=== PATIENT | female | born 1955 | race Caucasian/White ===

== ENCOUNTER 2017-07-04 08:30 | Day surgery (SDC) | payer BC ==
--- NOTE | 2017-07-04 06:13 | History and Physical Report ---
DATE: 07/04/2017. CHIEF COMPLAINT AND HISTORY OF CHIEF COMPLAINT: This patient had a spinal cord stimulator implant placed on 09/07/2010 with greater than 75 percent pain control. Over time with failure of the system and the lack of use, the patient presented and indicated that the system was nonfunctional, and she was requesting removal. She was given the options to remove, revise, or replace, and she opted to remove. PAST MEDICAL HISTORY: Asthmatic bronchitis, bladder dysfunction, peptic ulcer disease, gastritis, degenerative arthritis. PAST SURGICAL HISTORY: Lumbar laminectomy, ankle surgery, stimulator implant. MEDICATIONS ON ADMISSION: To be provided. ALLERGIES: None listed. SOCIAL HISTORY: Caffeine. FAMILY HISTORY: Thyroid disease, diabetes, coronary artery disease, cancer. REVIEW OF SYSTEMS: The patient seems appropriate and in no acute distress. PHYSICAL EXAMINATION: General: Height and weight are unavailable. Vital Signs: Unavailable. HEENT: Within normal limits. Lungs: Clear. Heart: Regular rate and rhythm. Abdomen: Nontender. Musculoskeletal: Examination of the musculoskeletal system shows two incision lines, one to the left and one to the right of the midline, for the placement of peripheral nerve stimulators. The generator pouch at the right posterior gluteal margin is identified. All of the incisions are intact. Primary pain pattern is in the low back. There is a mild lower extremity component. There is no current sensory or motor deficit to the lower extremities. Neurologic: Cranial nerves are intact. IMPRESSION: 1. INTRACTABLE LUMBAR RADICULOPATHY, ICD-10 CODE M54.16 AND M54.17. 2. PERIPHERAL NERVE STIMULATOR INTERNAL GENERATOR, TWO LEADS IN PLACE NONFUNCTIONAL. PLAN: The patient is here for removal of the two peripheral nerve stimulators and internal generator. The procedure will be considered outpatient. All of the potential risks, side effects, and complications have been reviewed and discussed. JOB NUMBER: [id number] cc: Leonardo Euceda M.D. MTDLonnie
[~2017-07-04 08:30] MED LIST: ACETAMINOPHEN 1,000 MG/100 ML BTL IV ONE; CLINDAMYCIN 600MG/50ML PREMIX 600 MG/50 ML BAG IVPB ONE; FAMOTIDINE 20MG TABLET PO ONE; MECLIZINE 25 MG TABLET PO ONE; METOCLOPRAMIDE 10 MG TABLET PO ONE
[2017-07-04] MEDS ORDERED: LIDOCAINE 1% W/EPI 1:200,000 MPF 30ML SQ ONE (08:31)
[2017-07-04] MEDS ORDERED: BUPIVACAINE 0.5% W/EPI MPF 30 ML VIAL IVP ONE (08:31)
[2017-07-04] MEDS ORDERED: CLINDAMYCIN (PEDIATRIC DOSING) 150 MG/ML VIAL IVPB ONE (08:31)
[2017-07-04] MEDS ORDERED: HYDROCODONE/APAP 7.5/325MG TABLET PO ONE (08:31)
--- NOTE | 2017-07-05 21:48 | Operative Note - [place] ---
DATE OF SURGERY: 07/04/17 PREOPERATIVE DIAGNOSES: 1. LUMBAR RADICULOPATHY, ICD-10 CODE = M54.16 AND M54.17. 2. PERIPHERAL NERVE STIMULATOR INTERNAL GENERATOR NONFUNCTIONAL. SURGERY: 1. INCISION AND SUBCUTANEOUS DISSECTION AND REMOVAL OF INTERNAL PULSE GENERATOR RIGHT POSTERIOR GLUTEAL MARGIN. 2. INCISION AND SUBCUTANEOUS DISSECTION AND REMOVAL OF LEFT PERIPHERAL NERVE STIMULATOR. 3. INCISION AND SUBCUTANEOUS DISSECTION AND REMOVAL OF FRACTURED SEGMENTED RIGHT PERIPHERAL NERVE STIMULATOR REMOVED IN TWO COMPONENT PARTS. ALL ELECTRODES ACCOUNTED FOR. 4. CLOSURE OF INCISIONS WITH VICRYL FOR FASCIA AND A RUNNING SUBCUTICULAR VICRYL FOR SKIN. A CLOSURE SYSTEM WAS PLACED. SURGEON: SANJU MON D.O. ANESTHESIA: LOCAL SEDATION. ANESTHESIA PROVIDER: KARLI PEREZ CRNA INDICATION: This patient presents with a history of intractable lumbar radiculopathy. Approximately eight to nine years ago, this patient had a peripheral nerve stimulator with internal generator placed. Although initially over a number of years, it worked fine. There was a complete disruption of stimulation. She was given the option to remove or replace. She opted to remove. PROCEDURE: Intravenous line, vital sign monitoring, IV sedation, prepped and draped with sterile technique. Patient positioned prone. The previous incisions , one left and one right of the midline, for the peripheral stimulators and at the right posterior gluteal margin were infiltrated with local. Incision made and subcutaneous dissection was conducted to the generator. The generator was removed intact. The left peripheral nerve stimulator site infiltrated. Incision and subcutaneous dissection, the suture and lead were removed intact. At the right incisional site, skin infiltrated, incision made and subcutaneous dissection was started to remove the lead. Under imaging it was identified that the lead had fractured the eight electrodes into equal four-segment components. The first lead was removed without difficulty. The second lead required an intermediate incision of approximately 4 to 5 cm above. The lead was identified and then removed. Antibiotic irrigation and Bovie for hemostasis. The incisions were then closed with Vicryl for fascia and a running nylon for skin. Appropriate water-impermeable Tegaderm was placed over each of the incisions. She was transported to the Recovery Room stable. No side-effects from the procedure or the sedation. DISCHARGE INSTRUCTIONS: 1. The sites will remain clean and dry, although the Tegaderm will allow showering. She should not sit in water. 2. Standard medications resumed. A script for [place] 7.5/325 at four a day for ten days was provided for incisional pain. An antibiotic will be called for by the pharmacy. Levaquin 500 mg once a day for 14 days. 3. The office will contact the patient at home in the next 24 to 48 hours to set up an appointment in 7 to 10 days to evaluate the sites and to remove the sutures. 4. All other instructions provided, numbers to contact if problems given. She should keep her activity levels low and controlled. Limit bend, lift, push, pull until she arrives for removal of the dressings. cc: Dr. Leonardo Euceda JOB NUMBER: [id number] MTDD
== END 2017-07-04 12:05 | disposition home or self-care (01) ==
LOC: SUR 08:30
PROVIDERS: ATTEND Pain Medicine Interventional Pain Medicine
DX: M54.16 Radiculopathy, lumbar region (principal); M54.17 Radiculopathy, lumbosacral region